=== PATIENT | male | born 1955 | race Caucasian/White ===

== ENCOUNTER 2023-11-11 16:02 | Outpatient (CLI) | payer OTHER, SELFPAY ==
[2023-11-11 16:41] LABS: Hematocrit 45.6 % (42.0-52.0); Hemoglobin 15.2 g/dL (14.0-18.0); Mean Corpuscular HGB Conc 33.3 g/dl (32-36); Mean Corpuscular Hemoglobin 31.1 pg (26-34); Mean Corpuscular Volume 93.3 fl (80-100); Mean Platelet Volume 10.8 fl (7.4-10.4); Platelet Count Result 173 k/mm3 (150-375); Red Blood Count 4.89 M/mm3 (4.6-6.20); Red Cell Distribution Width 12.4 % (11.5-14.5)
[2023-11-11 16:52] LABS: Alanine Aminotransferase 37 U/L (6-50); Albumin Level 4.6 g/dL (3.5-5.1); Alkaline Phosphatase 98 U/L (38-126); Anion Gap 6 mmol/L (4-12); Aspartate Amino Transferase 35 U/L (17-59); Bilirubin,Total 1.1 mg/dL (0.2-1.3); Blood Urea Nitrogen 15 mg/dL (9-20); Calcium 9.9 mg/dL (8.4-10.2); Carbon Dioxide 29 mmol/L (22-30); Chloride 104 mmol/L (98-107); Estimated Glomerular Filt Rate > 60; Glucose 129 mg/dL (65-110); Potassium 4.1 mmol/L (3.4-5.0); Sodium 139 mmol/L (137-145)
[2023-11-11 17:31] LABS: Vitamin D 25 Hydroxy 64.9 ng/mL
[2023-11-11 19:11] LABS: Microalbumin Urine Random 14.5 mg/L (0-16.7)
[2023-11-11 19:23] LABS: Creatinine Urine 81.2 mg/dL; MALB Creatinine Ratio 17.9 mg/g (0-30)
== END 2023-11-11 16:03 | disposition home or self-care (01) ==
PROVIDERS: PCP Family Medicine; Visit Provider Family Medicine
DX: E11.9 Type 2 diabetes mellitus without complications (principal); E66.9 Obesity, unspecified; Z00.00 Encounter for general adult medical examination without abnormal findings; Z76.89 Persons encountering health services in other specified circumstances
CPT/HCPCS: 36415; 80053; 82043; 82306; 83036; 85027

== ENCOUNTER 2024-05-24 08:29 | Outpatient (CLI) | payer OTHER, SELFPAY ==
[2024-05-24 09:15] LABS: Hematocrit 46.8 % (42.0-52.0); Hemoglobin 16.1 g/dL (14.0-18.0); Mean Corpuscular HGB Conc 34.4 g/dl (32-36); Mean Corpuscular Hemoglobin 31.9 pg (26-34); Mean Corpuscular Volume 92.7 fl (80-100); Mean Platelet Volume 10.5 fl (7.4-10.4); Platelet Count Result 186 k/mm3 (150-375); Red Blood Count 5.05 M/mm3 (4.6-6.20); Red Cell Distribution Width 12.6 % (11.5-14.5); White Blood Count 8.3 K/mm3 (4.5-10.0)
[2024-05-24 09:29] LABS: Alanine Aminotransferase 34 U/L (6-50); Albumin Level 4.6 g/dL (3.5-5.1); Alkaline Phosphatase 72 U/L (38-126); Anion Gap 8 mmol/L (4-12); Aspartate Amino Transferase 33 U/L (17-59); Bilirubin,Total 1.1 mg/dL (0.2-1.3); Blood Urea Nitrogen 20 mg/dL (9-20); Calcium 9.5 mg/dL (8.4-10.2); Carbon Dioxide 27 mmol/L (22-30); Chloride 105 mmol/L (98-107); Cholesterol 103 mg/dL (0-200); Estimated Glomerular Filt Rate > 60; Glucose 112 mg/dL (65-110); HDL Direct 46 mg/dL; Potassium 4.1 mmol/L (3.4-5.0); Sodium 140 mmol/L (137-145); Triglycerides 87 mg/dL (<150)
[2024-05-24 09:40] LABS: LDL Cholesterol Direct 36 mg/dL
[2024-05-24 09:59] LABS: Prostate Specific Antigen 2.3 ng/mL (< OR = 4.0)
[2024-05-24 11:40] LABS: Creatinine Urine 198.3 mg/dL
[2024-05-24 11:42] LABS: MALB Creatinine Ratio 5.4 mg/g (0-30); Microalbumin Urine Random 10.7 mg/L (0-16.7)
[2024-05-24 12:29] LABS: Hemoglobin A1C 6.1 % (<5.7)
== END 2024-05-24 08:30 | disposition home or self-care (01) ==
LOC: ANHLAB 08:39
PROVIDERS: PCP Family Medicine; Visit Provider Family Medicine
DX: Z12.5 Encounter for screening for malignant neoplasm of prostate (principal); E11.9 Type 2 diabetes mellitus without complications; E66.9 Obesity, unspecified; I48.91 Unspecified atrial fibrillation; Z00.00 Encounter for general adult medical examination without abnormal findings
CPT/HCPCS: 36415; 80053; 80061; 82043; 83036; 84153; 85027; G0103

== ENCOUNTER 2024-11-14 11:12 | Outpatient (CLI) | payer OTHER, SELFPAY ==
--- OUTSIDE RECORDS SUMMARY | 2024-11-14 12:02 | XMS_ITS | Data Portability ---
Author Organization [facility] Leann Sanchez [facility] Address [address] [place] [address] [place] [id number] Assessment Encounter Date Assessment Date Assessment LastModified by Organization Details LastModified Time 02/22/2024 02/22/2024 patient leaves ambulatory in stable condition alone to pharmacy performed some of all of the following activities: 1. Preparing to see the patient and reviewing previous procedures performed, pathology, lab and/or imaging. 2. Obtaining and reviewing the history, and performing a physical exam. 3. Counseling and educating the patient/family /caregiver. 4. Ordering appropriate medications, tests, and/or procedures. 5. Documenting in the EMR Not available 02/27/2024 14:11:30 Plan of Treatment Reminders Order Date Submit Date Provider Last Modified By Organization Details Last Modified Time Details Appointments Follow Up 15 2025 09:00A M Julianne Tineo MD Not available Not available Not available Lab None recorded. Referral None recorded. Procedures None recorded. Surgeries None recorded. Imaging None recorded. Medication Orders betametha sone acetate and sodium phos 6 mg/mL suspensio n for injection 2023 024 Not available 02/28/2024 14:42:45 dexametha sone sodium phosphate 4 mg/mL injection solution 2023 024 [email or web address] Not available 02/28/2024 14:42:43 baclofen 5 mg tablet 2023 [facility], [address] [place], [address], 02/22/2024 10:14:40 Mounjaro 2.5 mg/0.5 mL subcutane ous pen injector [address] [place] [address] Pharmacy 119, [address] [facility], [place], [address], 02/22/2024 09:54:09 Patient TargetsNo targets recorded. Patient Instructions Encounter Date Encounter Id Patient Instructions Last Modified By Organization Details Last Modified Time 02/22/2024 [id number] back pain: care instructions [email or web address] Not available 02/22/2024 10:12:05 03/21/2024 [id number] spirometry, portable* snaoman Not available 03/21/2024 16:00:33 This is a 68-year-old male referred for TARYN PMH of Diabetes and A fib I discussed with the patient the current status of their pulmonary disease. Discussed need for compliance with current medications. 1) TARYN: - night time choking, STOP BANG is 5/8, mallampati 2 ,ESS 8 . The patient was counseled regarding the increased morbidity and mortality associated with moderate to severe obstructive sleep apnea, as well as an increased risk for hypertension, heart attack and stroke. - Schedule PSG . - Excessive daytime sleepiness secondary to TARYN. 2) Dyspnea: could be secondary to TARYN . 3) As you know, we have recommended that you follow good sleep habits. As we have discussed, the principles of good sleep hygiene including 1) Fixing a bedtime (means lights out) and risetime 2) The bedroom should be cool, dark and quiet - and reserved for sleeping and intimate activities. 2a) If possible children should have their own bedroom. In any case we STRONGLY DISCOURAGE children sleeping in the same bed as you. 3) No caffeine intake after 2 PM 4) Television, computers and other electronic devices out of the bedroom - avoid activities that engage your attention when should be sleeping 5) Avoid heavy exercise during the 1 - 2 hours prior to bedtime (lights out time). 6) About 20 - 30 minutes prior to bedtime: stop regular activities like Television and computers. Do some downer activity that signals your body that it is time to go to sleep. This may include: 6a) Bath or shower 6b) light snack - no caffeine 6c) reading 6d) listen to music 6e) relaxation exercises - see our book or our disc or go to our website (below). 7) If you cannot fall asleep within 20 - 30 minutes, OR you wake up in the middle of the night and cannot fall asleep within 20 - 30 minutes: repeat the downer activity. although not a current smoker, inquired about patient smoking status and discussed risks of tobacco use. Patient verbally acknowledged the understanding of all the risks, benefits, and care plans. Call or Return if symptoms worsen or persist. snaoman Not available 03/21/2024 14:09:17 07/26/2024 [id number] 6 minute walk test* snaoman Not available 07/26/2024 11:27:05 This is a 69-year-old male referred for TARYN PMH of Diabetes and A fib, s/p pacemaker I discussed with the patient the current status of their pulmonary disease. Discussed need for compliance with current medications. 1) Severe TARYN: - Apnea hypopnea for the whole night was 43.4/hr patient state good compliance with CPAP . It helps , patient feels less tired and fatigued. Reviewed CPAP download done /compliance record and discussed it with the patient ( - ): usage > 4hrs 97 %, AHI2.3/hr, CPAP 5- 8 cm H2O Denies any daytime drowsiness or fatigue. 2) Dyspnea: could be secondary to TARYN . 3) As you know, we have recommended that you follow good sleep habits. As we have discussed, the principles of good sleep hygiene including 1) Fixing a bedtime (means lights out) and risetime 2) The bedroom should be cool, dark and quiet - and reserved for sleeping and intimate activities. 2a) If possible children should have their own bedroom. In any case we STRONGLY DISCOURAGE children sleeping in the same bed as you. 3) No caffeine intake after 2 PM 4) Television, computers and other electronic devices out of the bedroom - avoid activities that engage your attention when should be sleeping 5) Avoid heavy exercise during the 1 - 2 hours prior to bedtime (lights out time). 6) About 20 - 30 minutes prior to bedtime: stop regular activities like Television and computers. Do some downer activity that signals your body that it is time to go to sleep. This may include: 6a) Bath or shower 6b) light snack - no caffeine 6c) reading 6d) listen to music 6e) relaxation exercises - see our book or our disc or go to our website (below). 7) If you cannot fall asleep within 20 - 30 minutes, OR you wake up in the middle of the night and cannot fall asleep within 20 - 30 minutes: repeat the downer activity. although not a current smoker, inquired about patient smoking status and discussed risks of tobacco use. Patient verbally acknowledged the understanding of all the risks, benefits, and care plans. Call or Return if symptoms worsen or persist. snaoman Not available 07/26/2024 10:48:09 Reason for Referral None Reported. Results Created Date Observation Date Name Description Value Unit Range Abnormal Flag Note LastModifiedBy Organization Detail LastModifiedTime 03/21/2003/21/2024 nancy metry , daniele ble* FVC 87 Not Available [facility] [place] [address], [address], 03/21/2024 13:57:54 03/21/20 24 03/21/2024 nancy metry , daniele ble* FEV1 98 Not Available [facility] [place] [address], [address], 03/21/2024 13:57:54 03/21/20 24 03/21/2024 nancy metry , daniele ble* FEV1/FVC 113 Not Available [facility] [place] [address], [address], 03/21/2024 13:57:54 07/26/19 25 07/26/2024 6 minut e walk test* Unknown Analyte 93 Not Available [facility] [place] [address], [address], 07/26/2024 10:38:11 07/26/19 25 07/26/2024 6 minut e walk test* Unknown Analyte 85 Not Available [facility] [place] [address], [address], 07/26/2024 10:38:11 07/26/19 25 07/26/2024 6 minut e walk test* Unknown Analyte 93 Not Available [facility] [address] [place], [address], 07/26/2024 10:38:11 07/26/19 25 07/26/2024 6 minut e walk test* Unknown Analyte 86 Not Available [facility] [address] [place], [address], 07/26/2024 10:38:11 07/26/19 25 07/26/2024 6 minut e walk test* Unknown Analyte 93 Not Available [facility] [address] [place], [address], 07/26/2024 10:38:11 07/26/19 25 07/26/2024 6 minut e walk test* Unknown Analyte 87 Not Available [facility] [address] [place], [address], 07/26/2024 10:38:11 07/26/19 25 07/26/2024 6 minut e walk test* Unknown Analyte 93 Not Available [facility] [address] [place], [address], 07/26/2024 10:38:11 07/26/19 25 07/26/2024 6 minut e walk test* Unknown Analyte 91 Not Available [facility] [address] [place], [address], 07/26/2024 10:38:11 07/26/19 25 07/26/2024 6 minut e walk test* Unknown Analyte 92 Not Available [facility] [address] [place], [address], 07/26/2024 10:38:11 07/26/19 25 07/26/2024 6 minut e walk test* Unknown Analyte 89 Not Available [facility] [address] [place], [address], 07/26/2024 10:38:11 07/26/19 25 07/26/2024 6 minut e walk test* Unknown Analyte 91 Not Available [facility] [address] [place] [address] [place], [address], 07/26/2024 10:38:11 07/26/19 25 07/26/2024 6 minut e walk test* Unknown Analyte 99 Not Available [facility] [address] [place], [address], 07/26/2024 10:38:11 02/25/20 24 02/25/2024 XR, lumba r spine [facility] [address] [place] [address] Radiol ogy Report Lalitha t: CLINT BERG gino: [id number] Date of Servic e: [id number] MR #: [id number] /AG E/SEX: 1954 / 68 / M Room/B ed: Locati on: [place] [facility] Access ion: [id number] Exam: Lumbar Spine Comple te Reason : LOW BACK PAIN M54.50 Orderi ng Provid er: Edinson Melo APN Attend ing Provid er: Edinson Melo APN CC: Kwadwo MERINO,And rew; Edinson Melo; No Family Physic abner Report Number :[id number] Lumbar Spine Comple te: 024 10:11 AM Histor y: LOW BACK PAIN M54.50 FINDIN GS: 5 views lumbar spine obtain ed. Lumbar alignm ent within normal limits . Verteb ral body height s mainta ined. Modera te hypert rophic facet arthri tis at L4-L5. Interv ertebr al disc spaces mainta ined. No acute fractu re or suspic ious bone lesion . IMPRES SUHAS: Facet arthri tis at L4-L5. Otherw ise no acute lumbar spine findin g. All radiol ogy exams are perfor med follow ing ALARA, all CT images are acquir ed using automa gino exposu re contro l. End of Report Dictat ed by: Kwadwo MERINO,And rew 1339 Transc riptio nist: GARRETT RANDLE 1339 Signed by: Kwadwo MERINO,And rew 1340 [email or web address] [facility] ([facility]) [address] [facility], [place], [address], 02/26/2024 12:44:52 04/08/20 24 04/04/2024 sleep study split /BIPA P/CPA P [facility] [address] [facility] [address] [place] [address] Sleep Study Report Lalitha henderson: CLINT BERG JESÚS Escobedo gino: [id number] MR #: [id number] /AG E/SEX: 1954 / 68 / M Room/B ed: Locati on: [place] [facility] Exam: Sleep Study Split/ BIPAP/ CPAP Reason : OSAS Orderi ng Provid er: CHASIDY TINEO MD Attend ing Provid er: CHASIDY TINEO MD CC: Claudette Garcia rd, APRN; CHASIDY TINEO MD; No Family Physic abner,00 ; SLEEP Report Number : [id number] SPLIT NIGHT POLYSO MNOGRA PHY REPORT Clint Berg tested at 08:55: 18 PM on 024, is a 68 year Male, date of 956 who is 5' 8 and 200.0 lbs, with a BMI of 30.7. This lalitha henderson has an Epwort h Sleepi ness Score ESS=5. Neck circum ferenc e is 15.5 inches . Lalitha henderson did not take any medica tion that makes him sleepy prior to Study. Lalitha henderson states that he has Diabet es. Low diagno stic oxygen level of 85% Lalitha henderson met criter ia for a Split Study and was fitted with a Size Medium DreamW ear Under the Nose Nasal Mask. Beginn ing cpap pressu re of 5 cmH20. Modera te snores . EKG=NS R. Leg moveme nts with arousa ls. Ending Cpap pressu re of 7 cmH20. No unusua l sleep behavi or was observ ed. Oxygen was not used for this test. Lalitha henderson woke up and wanted to go home. METHOD This polyso mnogra m was perfor med using SleepW orks system . A total of 19 channe ls were record ed. Four EEG channe ls were record ed using disc electr odes placed accord ing to the standa rd 10/20 electr ode placem ent system to assess sleep stages . (Right C3-A2, C4-AI, OI-A2, 02-AI) . Airflo w was measur ed using the Braebo n Sleepm ate Thermo couple Nasal/ Oral Cannul a. Sleepm ate pressu re Cannul a was used to monito r air pressu re. Thorac ic and abdomi nal effort s were measur ed using the Ripmat e Induct sam Belt. The Braebo n Snorin g Sensor was placed on the site to assess snorin g. The Axial EMG activi ty was record ed from the mental is muscle . Leg moveme nts were record ed using the standa rd disc electr odes placed over the tibial is on both legs. The oxygen satura tion was record ed using a finger probe connec gino to the Nonin Pulse Oximet er. The ECG was used for Cardia c Monito ring. RESULT S REPORT Diagno [facility] Sleep Study Summar y Sleep Data: This lalitha t displa yed normal latenc y to sleep onset of 68.6 minute s, with normal sleep jordyn ecture with sleep stage percen tages of 6.6% N1, 61.5% N2, 23.0% N3, and 8.9% REM, with reduce d sleep effici ency of 49.4% and with Total Sleep Time of 128.5 minute s. Respir atory Data: 93 respir atory events were observ ed which includ ed 91 hypopn eas. The apnea hypopn ea index during REM is 41.7 and 43.6 during NREM. The apnea hypopn ea for the whole night was 43.4 which is elevat ed. The amount s of apneas /hypop neas are not evenly distri buted, with a non-RE M RDI of 43.6 and a REM RDI of 41.7. Respir atory events were more freque nt in the supine positi on. The longes t respir atory event durati on was 52.0 sec. Minimu m NREM oxygen satura tion was 86.0%; minimu m REM oxygen satura tion was 85.0%. Time spent below Sa02 of 88% was 1.7 min. Snorin g was noted to be modera te. Note: All respir atory events were scored using the AASM 1B criter ia (Hypop neas with a desatu ration >=%) Limb Moveme nt: 67 limb moveme nts were observ ed for an index of 31.3. Arousa l: 18 arousa ls were observ ed, with a total index of 8.4. There were 11 sponta neous arousa ls, 4 respir atory arousa ls (respi ratory arousa l index of 1.9), and 2 limb moveme nt arousa ls (limb moveme nt arousa l index of 0.9). Cardia c: The mean heart rate was 81.5 bpm. There were no arrhyt hmias noted. Titrat ion Sleep Study Summar y Sleep Data: This patien t displa yed normal latenc y to sleep onset of 22.5 minute s, with normal sleep jordyn ecture with sleep stage percen tages of 2.6% N1, 59.4% N2, 21.3% N3, and 16.8% REM, with reduce d sleep effici ency of 69.0% and with Total Sleep Time of 155.0 minute s. Titrat ion Data: Nasal CPAP was introd uced and titrat ed from 5 cm to 7 cm. Snorin g was elimin ated at 7 cm of pressu re. [place] l pressu re appear s to be - in terms of improv ing the patien t's qualit y of sleep, snorin g and apnea. Limb Moveme nt: 23 limb moveme nts were observ ed for an index of 8.9. Arousa l: 8 arousa ls were observ ed, with a total index of 3.1. There were 1 sponta neous arousa ls and 6 limb moveme nt arousa ls (limb moveme nt arousa l index of 2.3). Cardia c: The mean heart rate was 85.0 bpm. There were no arrhyt hmias noted. Impres suhas: 1. - Severe obstru ctive sleep apnea APAP 5-8 cm H2O Mask Type and size Medium DreamW ear Under the Nose Nasal Mask Mask Size Medium AHI on lowest level 56 AHI on optimu m level Note: US CMMS provid es covera ge for Rx of adults with TARYN, when AHI >15; OR for AHI 5 i?? 15 when accomp anied by: excess sam daytim e sleepi ness, impair ed cognit ion, mood disord ers, insomn ia, hypert ension , ischem ic heart diseas e, or histor y of stroke Recomm endati ons: 1. This study is consis tent with Severe obstru ctive sleep apnea. The patien t met split night criter ia. 2. Treatm ent with APAP at 5-8 cm H20 with heated humidi ficati on, A-Flex at 2, with a Medium DreamW ear Under the Nose Nasal Mask. 3. The patien t should be counse led regard ing the increa sed morbid ity and mortal ity associ ated with modera te to severe obstru ctive sleep apnea, as well as an increa sed risk for hypert ension , heart attack and stroke . 4. The patien t should be counse led not to drive or operat e heavy stephanie alban when drowsy . 5. Sugges t the patien t be referr ed and seen in Sleep Clinic within 30 days of [facility] ent set up to downlo ad APAP data and addres s issues with compli ance, mask fit and sympto m relief . End of Report Dictat ed by: Rivka MERINO, Julianne 08 Transc riptio nist: JULIANNE TINEO [id number] [email or web address] [facility] ([facility]) [address] [place], [address], 04/10/2024 08:21:54 Result Notes None recorded. Problems Name Problem SNOMED Code Status Onset Date Resolution Date Notes Provider Name and Address Organization Details Recorded Time Syncope and collapse 552872299 Active 2012 Location : None Sev erity: Moderate Progres s: Stable A dded By: KIKO MATHEW dd to Current Problems : NO Not Available [facility] 8 03:05:27 Musculos keletal symptom 09658753 Completed 201101/22/2012 Location : None Sev erity: Moderate Progres s: Stable A dded By: Donnell Arroyo Add to Current Problems : NO Not Available [facility] 8 03:05:27 Cough 78453424 Completed 201201/29/2013 Location : None Sev erity: Moderate Progres s: Stable A dded By: KIKO MATHEW dd to Current Problems : NO Not Available [facility] 8 03:05:27 Malaise and fatigue 441648057 Active 2011 Location : None Sev erity: Moderate Progres s: Stable A dded By: Nella Bauer d to Current Problems : NO Not Available [facility] 8 03:05:27 Fibromyo sitis 37330491 Completed 201109/07/2011 Location : None Sev erity: Moderate Progres s: Stable A dded By: Nella Bauer to Current Problems : NO Not Available [facility] 8 03:05:27 Cellulit is of lower limb 877060381 Completed 201001/28/2011 Location : None Sev erity: Moderate Progres s: Stable A dded By: Nella Bauer to Current Problems : NO Not Available [facility] 8 03:05:27 Headache 59685738 Completed 201201/05/2013 Location : None Sev erity: Moderate Progres s: Stable A dded By: Donnell Arroyo Add to Current Problems : NO Not Available [facility] 8 03:05:27 Benign essentia l hyperten suhas 7521312 Active 2011 Location : None Sev erity: Moderate Progres s: Stable A dded By: KIKO MATHEW dd to Current Problems : NO Not Available [facility] 8 03:05:27 Pain of hip region 01992071 Completed 201109/07/2011 Location : None Sev erity: Moderate Progres s: Stable A dded By: Nella Bauer d to Current Problems : NO Not Available [facility] 8 03:05:27 Shoulder joint pain 371438928 Completed 201201/05/2013 Location : None Sev erity: Moderate Progres s: Stable A dded By: KIKO MATHEW dd to Current Problems : NO Not Available [facility] 8 03:05:27 Dizzines s and giddines s 173592148 Active 2012 Location : None Sev erity: Moderate Progres s: Stable A dded By: Donnell Arroyo Add to Current Problems : NO Not Available [facility] 8 03:05:28 Acute sinusiti s 45151305 Completed 201310/16/2013 Location : None Sev erity: Moderate Progres s: Stable A dded By: Donnell Arroyo Add to Current Problems : NO Not Available [facility] 8 03:05:28 Allergic rhinitis 00306457 Completed 201201/29/2013 Location : None Sev erity: Moderate Progres s: Stable A dded By: KIKO MATHEW dd to Current Problems : NO Not Available [facility] 8 03:05:28 Shoulder joint pain 655384001 Active 2011 Not Available [facility] 8 04:59:20 Disorder of lower limb 745363675 Completed 201001/28/2011 Location : None Sev erity: Moderate Progres s: Stable A dded By: Nella Bauer to Current Problems : NO Not Available [facility] 8 03:47:22 Benign prostati c hyperpla humberto 269547781 Active 2021 Kylie Tompkins, RESIDENT SURGEON [address] [place], [address] , [facility] 2 09:42:50 Hyperlip idemia 05036079 Active 2021 Jojo harris, [facility] 2 16:46:09 Prediabe talat 006538271 Active 2021 Jojo Littlejohn null, [facility] 2 16:47:14 Benign paroxysm al position al vertigo 953061948 Active 2021 Kylie Tompkins, RESIDENT SURGEON [address] [place], [address] , [facility] 2 11:14:25 Type 2 diabetes mellitus 31545616 Active 2022 Kylie Tompkins, RESIDENT SURGEON [address] [place], [address] , [facility] 3 09:19:08 Pain of left wrist 18267803040 9102 Active 2022 Kylie Tompkins, RESIDENT SURGEON [address] [place], [address] , [facility] 3 10:23:32 Osteomye litis 10295080 Active 2010 Relation : Self;Not e: Remote: right femur Not Available [facility] 7 08:31:57 Atrial fibrilla tion 57953747 Active 2012 Relation : Self Not Available [facility] 7 08:31:57 Gastroes ophageal reflux disease 164094184 Active 2010 Relation : Self Not Available [facility] 7 08:31:58 Prostate specific antigen above referenc e range 310500800 Active 2011 Relation : Self Not Available [facility] 7 08:31:58 Disorder of rotator cuff 865883098 Active 2011 Relation : Self Not Available [facility] 7 08:35:42 Full thicknes s rotator cuff tear 532198032 Active 2011 Relation : Self Not Available [facility] 7 08:35:42 Disorder of shoulder 347310788 Active 2014 Relation : Self Not Available [facility] 7 08:35:43 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 Procedures Surgical History Date Name Laterality Status Provider Name and Address Organization Details Recorded Time 2 Suture/Staple removal completed Kate Cuenca [facility] 06/01/2022 11:26:02 0 Removal of foreign body - Eye completed Celia Costa APRN [address] [place] [address], [address], [facility] 09/02/2019 17:56:00 Pacemaker/Defib rillator completed [facility] 09/02/2019 14:52:15 Colonoscopy completed [facility] 09/02/2019 14:57:23 Imaging Results Imaging Date Name Status LastModified by Organiz ation Details LastModified Time 02/25/2024 XR, lumbar spine completed [email or web address] ([facility]) [address] [place] [address], [address], 02/26/2024 12:44:52 04/04/2024 sleep study split/BIPAP/ CPAP completed [id number] [facility] ([facility]) [address] [place] [address], [address], 04/10/2024 08:21:54 Procedure Notes None recorded. Medical Equipment None Reported. Allergies Allergen ID Allergen Name Allergen Category Reaction Reaction Severity Criticality Documentation Date Start Date Code Code System Note Provider Name and Address Organization Details Recorded Time 128100 acetamino phen / hydrocodo ne medicatio n Not available Not available Not available 02/27/20172014 00153 2 RxNorm Comme nt: User: danelle t; Not Available [facility] 7 08:14:02 38420 Bactrim medicatio n rash Not available Not available 09/16/20162014 43129 9 RxNorm Not Available [facility] 7 15:41:28 05713 No known allergy (situatio n) Not available Not available Not available Not available 09/16/2016 71357 6003 SNOMED Not Available [facility] 7 11:16:22 Medications Name Sig Start Date Stop Date Status Note LastModified by Organization Details LastModified Time cyclobenz aprine 10 mg tablet TAKE 1 TABLET BY MOUTH THREE TIMES DAILY NEEDED 06/10 completed Not Available Not Available Not Available amoxicill in 500 mg capsule TAKE 1 CAPSULE BY MOUTH TWICE DAILY DIRECTED FOR 10 DAYS 12/02 completed Not Available Not Available Not Available metformin 500 mg tablet Take 1 tablet by mouth twice daily 07/13 completed Not Available Not Available Not Available promethaz ine-DM 6.25 mg-15 mg/5 mL oral syrup TAKE 5 ML BY MOUTH EVERY 4 HOURS 12/02 completed Not Available Not Available Not Available atorvasta tin 20 mg tablet TAKE ONE TABLET BY MOUTH EVERY DAY active Not Available Not Available No t Available metoprolo l succinate ER 50 mg tablet,ex tended release 24 hr TAKE ONE TABLET BY MOUTH EVERY DAY active Not Available Not Available No t Available Vicodin 5 mg-500 mg tablet take one or both one hour prior to procedur e 09/23 completed Vicodin 5-500 mg oral tablet;R ecorded Status: Recorded on: 04/19/20 12 11:47AM; Disconti nued Status: Disconti nued on: 09/24/19 16 1:18PM;U ser: [email or web address];E st. Completi on: 04/20/20 12;Print ed: 04/19/20 12;Presc ription Date: 04/24/20 12 03:57:54 ;Clinica l Medicati on Id: [id number];U nique Medicati on Id: [id number];D iscontin uedUser: [email or web address];Pr escribed : Practice Prescrib ed Medicati on Not Available Not Available Not Available Tikosyn 250 mcg capsule take 1 capsule (250 mcg) by oral route 2 times per day 05/26 completed Tikosyn 250 mcg oral capsule; Recorded Status: Recorded on: 09/24/19 16 2:11PM;U ser: [email or web address] on;Indic ation: Preventi on of Recurren t Atrial Fibrilla tion - ([phone]);Clin ical Medicati on Id: [id number];U nique Medicati on Id: [id number];P rescribe d: Outside [facility] ed Medicati on Not Available Not Available Not Available acetamino phen 300 mg-codein e 30 mg tablet TAKE 1 TABLET BY MOUTH EVERY 6 HOURS NEEDED 06/10 completed Not Available Not Available Not Available aspirin 81 mg tablet,de layed release take 1 tablet (81 mg) by oral route once daily 09/02 completed aspirin 81 mg oral tablet,d elayed release (/EC); Recorded Status: Recorded on: 09/24/19 16 2:11PM;U ser: [email or web address] on;Clini socrates Medicati on Id: [id number];U nique Medicati on Id: [id number];P rescribe d: Outside [facility] ed Medicati on Not Available Not Available Not Available ketorolac 10 mg tablet TAKE ONE TABLET BY MOUTH THREE TIMES DAILY NEEDED FOR PAIN active Not Available Not Available No t Available betametha sone acetate and sodium phos 6 mg/mL suspensio n for injection Take 1 mL by injectio n route. 02/27 completed Not Available Not Available Not Available prednisol one acetate 1 % eye drops,james pension INSTILL 1 DROP INTO OPERATIV E EYE 4 TIMES A DAY. START THE DAY BEFORE SURGERY 05/26 completed Not Available Not Available Not Available ciproflox acin 0.3 % eye drops INSTILL 1 DROP INTO AFFECTED EYE(S) BY OPHTHALM IC ROUTE EVERY 2 HOURSWHI LE AWAKE FOR 2 DAYS THEN 1 DROP EVERY 4 HRS WHILE AWAKE FOR 5 DAYS 10/05 completed Not Available Not Available Not Available meclizine 25 mg tablet Take 1 tablet 3 times a day by oral route for 14 days. 12/09 completed Not Available Not Available Not Available hydrocodo ne 7.5 mg-acetam inophen 325 mg tablet Take 1 tablet every 6 hours by oral route. 10/04 completed Not Available Not Available Not Available Cipro 500 mg tablet take 1 tablet (500 mg) by oral route 2 times per day for 5 days to start the day before procedur e 09/23 completed Cipro 500 mg oral tablet;R ecorded Status: Recorded on: 04/19/20 12 11:47AM; Disconti nued Status: Disconti nued on: 09/24/19 16 1:18PM;U ser: [email or web address];E st. Completi on: 04/24/20 12;Print ed: 04/19/20;Presc ription Date: 04/24/20 03:57:54 ;Clinica l Medicati on Id: [id number];U nique Medicati on Id: [id number];D iscontin uedUser: [email or web address];Pr escribed : Practice Prescrib ed Medicati on Not Available Not Available Not Available lisinopri l 10 mg tablet take 1 tablet (10 mg) by oral route once daily 10/05 completed lisinopr il 10 mg oral tablet;R ecorded Status: Recorded on: 07/27/19 15 9:42AM;U ser: [email or web address] Not Available Not Available Not Available flecainid e 100 mg tablet take 1 tablet (100 mg) by oral route every 12 hours 07/27 completed flecaini de 100 mg oral tablet;R ecorded Status: Recorded on: 07/27/19 15 9:42AM;D iscontin ued Status: Disconti nued on: 07/27/19 15 2:57PM;U ser: [email or web address] Not Available Not Available Not Available aspirin 81 mg chewable tablet chew 1 tablet (81 mg) by oral route once daily 2014 active aspirin 81 mg oral tablet,abdirahman vicente; Recorded Status: Recorded on: 07/27/19 15 9:42AM;U ser: [email or web address] Not Available Not Available Not Available diclofena c sodium 75 mg tablet,de layed release Take 1 tablet twice a day by oral route. 11/15/ 2023 active Not Available Not Available Not Avai lable furosemid e 20 mg tablet Take 1 tablet every day by oral route for 14 days. 04/16 completed Not Available Not Available Not Available dexametha sone sodium phosphate 4 mg/mL injection solution Inject 1 mL twice a day by intramus cular route. 02/27 completed Not Available Not Available Not Available methylpre dnisolone 4 mg tablets in a dose pack TAKE BY MOUTH DIRECTED ON INSIDE OF PACKAGE 12/02 completed Not Available Not Available Not Available colchicin e 0.6 mg tablet TAKE 1/2 TABLET BY MOUTH TWICE DAILY FOR 5 DAYS active Not Available Not Available No t Available fluticaso ne propionat e 50 mcg/actua tion nasal spray,james pension [place] 1 spray every day by intranas al route. 05/26 completed Not Available Not Available Not Available dofetilid e 500 mcg capsule TAKE 1 CAPSULE BY MOUTH TWICE DAILY 12/02 completed Not Available Not Available Not Available naproxen 500 mg tablet TAKE 1 TABLET BY MOUTH TWICE DAILY 04/16 completed Not Available Not Available Not Available Microlet Lancet USE DIRECTED TO CHECK BLOOD GLUCOSE DAILY (E11.22) 2023 active Not Available Not Available Not Avai lable Fish Oil 500 mg capsule take 1 capsule by oral route daily 2015 active Fish Oil 500 mg oral capsule; Recorded Status: Recorded on: 09/24/19 16 2:11PM;U ser: [email or web address] on;Clini socrates Medicati on Id: [id number];U nique Medicati on Id: [id number];P rescribe d: Outside Prescrib ed Medicati on Not Available Not Available Not Available dutasteri de 0.5 mg capsule TAKE 1 CAPSULE BY MOUTH ONCE DAILY active Not Available Not Available No t Available metoprolo l tartrate 25 mg tablet take 1 tablet (25 mg) by oral route 2 times per day 10/05 completed metoprol ol tartrate 25 mg oral tablet;R ecorded Status: Recorded on: 09/24/19 16 2:11PM;U ser: [email or web address] on;Indic ation: Hyperten suhas - ();Clin ical Medicati on Id: [id number];U nique Medicati on Id: [id number];P rescribe d: Outside Prescrib ed Medicati on Not Available Not Available Not Available Vitamin C daily active Not Available Not Mery ilable Not Available aspirin 09/23 completed Aspirin; Recorded Status: Recorded on: 01/22/20 11 3:19PM;D iscontin ued Status: Disconti nued on: 09/24/19 16 2:11PM;U ser: [email or web address]; Indicati on: - (-5);Pre scriptio n Date: 01/22/20 11 22:11:11 ;Clinica l Medicati on Id: [id number];Un ique Medicati on Id: -5;Disco ntinuedU ser: [email or web address] on;Presc ribed: Outside Prescrib ed Medicati on Not Available Not Available Not Available Fish Oil 09/23 completed Fish oil;Stephen rded Status: Recorded on: 01/22/20 11 3:19PM;D iscontin ued Status: Disconti nued on: 09/24/19 16 2:11PM;U ser: [email or web address]; Indicati on: - (-5);Pre scriptio n Date: 01/22/20 11 22:11:11 ;Clinica l Medicati on Id: [id number];Un ique Medicati on Id: -5;Disco ntinuedU ser: swilkers on;Presc ribed: Outside Prescrib ed Medicati on Not Available Not Available Not Available metoprolo l succinate once daily 06/10 completed Not Available Not Available Not Available Tikosyn BID 04/16 completed Tikosyn oral;Rec orded Status: Recorded on: 09/04/19 15 1:24PM;U ser: [email or web address];C linical Medicati on Id: [id number];U nique Medicati on Id: [id number];Pr escribed : Outside Prescrib ed Medicati on Not Available Not Available Not Available levocetir izine 5 mg tablet TAKE 1 TABLET BY MOUTH ONCE DAILY 06/10 completed Not Available Not Available Not Available tadalafil 2.5 mg tablet Take 1 tablet every day by oral route. 10/06 /2022 completed Not Available Not Available Not Available Pradaxa 150 mg capsule take 1 capsule (150 mg) by oral route 2 times per day 07/27 completed Pradaxa 150 mg oral capsule; Recorded Status: Recorded on: 07/27/19 15 9:42AM;D iscontin ued Status: Disconti nued on: 07/27/19 15 2:57PM;U ser: [email or web address] Not Available Not Available Not Available Contour Next Test Strips USE 1 STRIP TO CHECK GLUCOSE ONCE DAILY DIRECTED active Not Available Not Available No t Available Contour Next EZ Meter USE DIRECTED active Not Available Not Available No t Available Eliquis 5 mg tablet TAKE 1 TABLET BY MOUTH TWICE DAILY active Not Available Not Available No t Available Eliquis 09/02 completed Eliquis oral;Rec orded Status: Recorded on: 09/04/19 15 1:24PM;U ser: [email or web address];C linical Medicati on Id: [id number];U nique Medicati on Id: [id number];P leida d: Outside Prescrib ed Medicati on Not Available Not Available Not Available baclofen 5 mg tablet TAKE 1 TABLET BY MOUTH THREE TIMES DAILY NEEDED FOR BACK PAIN active Not Available Not Available No t Available Mounjaro 7.5 mg/0.5 mL subcutane ous pen injector Inject 7.5 mg every week by subcutan eous route. 10/04 completed Not Available Not Available Not Available Mounjaro 5 mg/0.5 mL subcutane ous pen injector INJECT 5 MG SUBCUTAN EOUSLY ONCE WEEKLY 02/21 completed Not Available Not Available Not Available Mounjaro 10 mg/0.5 mL subcutane ous pen injector INJECT 1 SYRINGE SUBCUTAN EOUSLY ONCE A WEEK active Not Available Not Available No t Available Mounjaro 12.5 mg/0.5 mL subcutane ous pen injector INJECT 12.5 MG (0.5 ML) SUBCUTAN EOUSLY ONCE WEEKLY active Not Available Not Available No t Available Mounjaro 2.5 mg/0.5 mL subcutane ous pen injector Inject 0.5 mL every week by subcutan eous route. 02/21 completed Not Available Not Available Not Available Dexcom G7 Sensor device USE DIRECTED 02/21 completed Not Available Not Available Not Available Vitals Date Recorded Body height Heart rate Respiratory rate Body temperature Body mass index (BMI) Body weight Oxygen saturation Oxygen saturation in Arterial blood by Pulse oximetry Pain severity - 0-10 verbal numeric rating [Score] - Reported Systolic blood pressure Diastolic blood pressure Provider Name and Address Organization Details Last Updated DateTime 4 172.72 cm 78 /min 20 /min 98.4 [degF] 33.3 kg/m2 60804.7 3 g 96 % 96 % 7 134 mm[Hg] 80 mm[Hg] Halima Lozada [facility] 4 09:14:04 Date Recorded Body height Body mass index (BMI) Body weight Body temperature Respiratory rate Heart rate Oxygen saturation Oxygen saturation in Arterial blood by Pulse oximetry Systolic blood pressure Diastolic blood pressure Provider Name and Address Organization Details Last Updated DateTime 4 172.72 cm 31.9 kg/m2 52436.6 1 g 98 [degF] 20 /min 82 /min 97 % 97 % 140 mm[Hg] 85 mm[Hg] Karla Keysluis [facility] 4 09:56:55 Date Recorded Body height Heart rate Respiratory rate Body temperature Body mass index (BMI) Body weight Oxygen saturation Oxygen saturation in Arterial blood by Pulse oximetry Systolic blood pressure Diastolic blood pressure Provider Name and Address Organization Details Last Updated DateTime 4 172.72 cm 76 /min 20 /min 98 [degF] 31.7 kg/m2 20884.9 3 g 97 % 97 % 122 mm[Hg] 84 mm[Hg] Haylee Saldivar [facility] 4 14:47:53 Date Recorded Body height Heart rate Respiratory rate Body mass index (BMI) Body weight Oxygen saturation Oxygen saturation in Arterial blood by Pulse oximetry Provider Name and Address Organization Details Last Updated DateTime 4 172.72 cm 84 /min 20 /min 30.4 kg/m2 43531.4 7 g 97 % 97 % Alley Girard [facility] 4 14:05:15 Date Recorded Body height Heart rate Respiratory rate Body mass index (BMI) Body weight Oxygen saturation Oxygen saturation in Arterial blood by Pulse oximetry Provider Name and Address Organization Details Last Updated DateTime 5 172.72 cm 85 /min 20 /min 31.5 kg/m2 81340.6 2 g 93 % 93 % Emy Man [facility] 5 10:36:16 Social History Question Answer Notes LastModified by Organizat ion Details LastModified Time Tobacco Smoking Status Never Smoker Krystal Cohen [email or web address] [facility] 09/02/2019 14:57:38 What Is Your Level Of Alcohol Consumption? Occasional [email or web address] Information not available 06/10/2021 What Is Your Level Of Caffeine Consumption? None [email or web address] Information not available 06/10/2021 In The 14 Days Before Symptom Onset, Have You Had Close Contact With A Laboratory-confir med COVID-19 While That Case Was Ill? No Information not available 12/09/2022 In The 14 Days Before Symptom Onset, Have You Had Close Contact With A Person Who Is Under Investigation For COVID-19 While That Person Was Ill? No Information not available 12/09/2022 Have You Been To An Area Known To Be High Risk For COVID-19? No Information not available 12/09/2022 Do You Or Have You Ever Used E-cigarettes Or Vape? Never Used Electronic Cigarettes [email or web address] Information not available 09/02/2019 How Often Do You Need To Have Someone Help You When You Read Instructions, Pamphlets, Or Other Written Material From Your Doctor Or Pharmacy? 1-Never [email or web address] Information not available 09/02/2019 What Was The Date Of Your Most Recent Tobacco Screening? 07/26/2024 [email or web address] Information not available 07/26/2024 Do You Or Have You Ever Used Smokeless Tobacco? Never Used Smokeless Tobacco [email or web address] Information not available 09/02/2019 Do You Use Any Illicit Or Recreational Drugs? No [email or web address] Information not available 06/10/2021 Do You Or Have You Ever Used Any Other Forms Of Tobacco Or Nicotine? No [email or web address] Information not available 06/10/2021 Sex: Unknown Functional Status None recorded. Mental Status None recorded. Family History Nothing Reported. Medical History No medical history recorded. Immunizations Vaccine Type Date Status Note Provider Nam e and Address Organization Details Recorded Time SARS-COV-2 (COVID-19) vaccine, UNSPECIFIED 03/12/2021 completed Haylee harris, [facility] 02/28/2024 14:42:34 SARS-COV-2 (COVID-19) vaccine, UNSPECIFIED 04/10/2021 completed Haylee Saldivar null, [facility] 02/28/2024 14:42:34 COVID-19, mRNA, LNP-S, PF, 30 mcg/0.3 mL dose 03/18/2021 completed Haylee Saldivar null, [facility] 02/28/2024 14:42:34 COVID-19, mRNA, LNP-S, PF, 30 mcg/0.3 mL dose 04/04/2021 completed Haylee Saldivar null, [facility] 02/28/2024 14:42:34 Hep A, adult 07/15/2018 completed Haylee Saldivar [facility] 02/28/2024 14:42:34 Past Encounters Encounter ID Performer Location Encounter Start Date Encounter Closed Date Diagnosis/Indication Diagnosis SNOMED-CT Code Diagnosis ICD10 Code Diagnosis Note [id number] Celia Costa [facility] [address] [id number] 09/02/2019 14:43:02 09/02/2019 18:42:11 Corneal abrasion 28303829 S05.02XA [id number] Kylie Tompkins APRN [facility] [address] [id number] 04/20/2020 09:29:36 04/20/2020 11:01:55 Adult health examination 391455482 Z00.00 Hyperlipid emia screening 103657115 Z13.220 Influenza vaccination declined 014826668 Z28.21 [id number] Kylie Tompkins APRN [facility] [address] [id number] 10/05/2020 10:27:38 10/05/2020 11:02:56 Headache 79286902 R51.9 Benign par oxysmal positional vertigo 291435082 H81.10 [id number] Kylie Tompkins [facility] [address] [place] [address] 06/10/2021 10:05:14 06/10/2021 11:19:32 Benign essential hypertension 9627193 I10 Long-term drug therapy 579137373 Z79.899 Screening for malignant neoplasm of prostate 790457668 Z12.5 Erectile dysfunction 860 066585 F52.21 Osteoarthritis 659074440 M19.90 [id number] Palmer Olivier [facility] [address] [place] [address] 06/25/2021 08:57:52 06/25/2021 09:58:17 Edema of foot 367444403 R60.0 Instructed to elevate foot as much as possible. RTC in 10 days if not improving. [id number] EDINSON MELO RESIDENT SURGEON [place] [address] [place] [address] 07/22/2021 15:40:49 07/22/2021 18:09:06 Exposure to SARS-CoV-2 754744660 Z20.687 [id number] EDINSON MELO [facility] [address] [place] [address] 08/18/2021 11:16:50 08/18/2021 12:07:20 Acute sinusitis 41147146 J01.90 [id number] LINDA SAUNDERS NP [place] [address] [place] [address] 10/20/2021 12:24:14 10/20/2021 12:55:42 Pain of left wrist 5566613799 57025 M25.532 Will send for xrays of left wrist and hand. Patient notes that he has fallen and it has increased the pain and welling. Will send for left wrist brace at this time. Can apply ice and rest hand. Use acetaminop hen for pain relief. Arthritis 5417101 M19.90 Severe trapeziome tacarpal joint arthritis noted on xray impression s. will send for orthopedic evaluation at this time. Skin lesion 11411400 L98 .9 Skin lesion/ramu wth noted on left middle tarsal finger. Patient notes that lesion has been present for 2-3 years. Will send for referral at this time. [id number] LINDA SAUNDERS NP [place] [address] [id number] 12/02/2021 12:23:11 12/02/2021 13:57:57 Screening for malignant neoplasm of colon 028460083 Z12.11 Diarrhea 46589008 R19.7 Advised against use of imodium. increase water intake and replacemen t of electrolyt es with gatorade Viral gastroenteritis 11 6350789 A08.4 Suspect viral gastroente ritis. Advised bland diet. Avoid spicy and greasy foods at this time. increase water intake. monitor for fever and take acetaminop hen as directed. Ensure adequate rest and hydration. return to clinic as needed or with worsening symptoms. [id number] Kylie Tompkins APRN [facility] [address] [id number] 04/16/2022 15:04:51 04/16/2022 15:56:06 Adult health examination 074363114 Z00.00 Declines flu vaccine Benign ess ential hypertension 8598858 I10 Screening for malignant neoplasm of prostate 469335611 Z12.5 Hyperlipidemia 26339976 E78.5 Prediabetes 871793443 R7 3.03 Long-term drug therapy 009345932 Z79.899 Benign par oxysmal positional vertigo 437987797 H81.10 [id number] LINDA SAUNDERS NP [facility] [address] [id number] 06/01/2022 10:58:22 06/01/2022 11:28:34 Removal of suture 72238994 Z48.02 3 sutures removed from the middle finger in the left hand s/p cyst removal. [id number] Kylie Tompkins APRN [address] [place] [address] 12/09/2022 09:00:04 12/09/2022 10:03:29 Type 2 diabetes mellitus 14519458 E11.22 pt is very poorly controlled and we have discussed this in the past but he has yet to change his eating habits or monitor his glucose at home as he is supposed to. we will start mounjaro at 2.5mg and he will continue to metformin for now. after 30 days he is to contact the clinic with a log of his fasting glucose and we will discuss lowering metformin and increasing mounjaro at that time. Benign ess ential hypertension 2763173 I10 Atrial fibrillation 4943 6004 I48.91 [id number] Kylie Tompkins APRN [place] [address] [address] 01/18/2023 15:05:19 01/18/2023 15:51:50 Type 2 diabetes mellitus 42865247 E11.22 pt is very poorly controlled and we have discussed this in the past but he has yet to change his eating habits or monitor his glucose at home as he is supposed to. has been on 0.25 mounjaro and not getting improved control at this time. We can recheck his A1C in February, fasting sugar at home has been around 135 each morning, will increase dose to 5mg and he needs to stay on this for 3 months, follow up in April for labs and to discuss if his dose needs to be increased at that time. Last A1C was 10.5 in November [id number] Kylie Tompkins APRN [place] [facility] [address] [address] 04/27/2023 09:20:08 04/27/2023 10:24:54 Type 2 diabetes mellitus 73464501 E11.22 Last A1C in November was 10.5 today is 6.1, my goal is to get him off oral meds for diabetes if possible. Pain of left wrist 30352 38634 18547 M25.557 [id number] Kylie Tompkins APRN [place] [address] [address] 05/26/2023 11:26:16 05/26/2023 12:07:24 Pain of left wrist 5903052826 27777 M25.532 more than 20min was spent with pt discussing dx and plan of care for each [id number] Kylie Turner STAN[place]LA[place] [address] [address] 07/13/2023 08:57:48 07/13/2023 10:23:28 Type 2 diabetes mellitus 90047102 E11.22 Pain of left wrist 45727 66184 35572 M25.532 more than 20min was spent with pt discussing dx and plan of care for each [id number] Kylie Hodgsonford RESIDENT SURGEON [address],[place] [address] 10/05/2023 09:00:09 10/05/2023 09:59:57 Type 2 diabetes mellitus 72326918 E11.22 pt has been off this since Jul and his sugars are running higher the longer he is off of it. His ins has denied it after initially approving it. will check A1C next month at the 3mo cindi [id number] EDINSON MELO APRN [facility] [address] [id number] 02/22/2024 09:33:54 02/22/2024 10:19:18 Low back pain 330244860 M54.50 Denies imaging, tolerated injection well, take baclofen as needed, can make tired, make sure that you do not operate moving or heavy machinery while taking muscle relaxers.I f pain persists- RTC for imaging. fall W19.XXXA Slipped on deck. [id number] ISABEL WRIGHT RESIDENT SURGEON [facility] [address] [id number] 02/28/2024 14:28:50 02/28/2024 16:15:24 Low back pain 329694444 M54.50 Pt offered different medication s to help symptoms and/or pain management referralPt declined and stated would take a more conservati ve approach with otc medication sIf worsening returnpt stable and ambulatory when leaving the clinic [id number] MD [facility] [address] [place] [address] [place] [address] 03/21/2024 13:47:11 03/21/2024 14:16:32 Sleep apnea 63711618 G47.30 Dyspnea on exertion 6084 5006 R06.09 Inadequate sleep hygiene 884060728 Z72.821 Obstructiv e sleep apnea syndrome 50508967 G47.33 [id number] MD [facility] [address] [address] 07/26/2024 10:11:37 07/26/2024 10:47:40 Obstructive sleep apnea syndrome 19222271 G47.33 Dyspnea on exertion 6084 5006 R06.09 Inadequate sleep hygiene 044497198 Z72.821 Health Concerns Section Related Observation LastModified by Organization Detai ls LastModified Time None Recorded Concern Status LastModified by Organization Details LastModified Time None Recorded Advance Directives Directive None Recorded Payers Encounter Date Sequence Insurance Name Policy Number Policy Pinedo Covered Member ID Pinedo Member ID Guarantor Name 10/05/2023 1 [employer] [id number] Maria Djeffrey Welsh Morena [id number] Gwyn Berg 02/22/2024 1 [employer] [id number] Maria Djeffrey Welsh Morena [id number] Gwyn Berg 02/28/2024 1 [employer] [id number] Mani Blaise Morena [id number] Gwyn Berg 03/21/2024 1 [employer] [id number] Maria Djeffrey Welsh Morena [id number] Gwyn Berg 07/26/2024 1 [employer] [id number] Mani Blaise Morena [id number] Gwyn Berg Notes Date Note Type Note Provider Name and Address Organization Details Recorded Time 10/05/2023 text/html Diabetes F/UReported bypatient.Review finger sticks:fastin Context:seeing eye doctor regularly; checking feet regularly;home blood sugar range high Associated Symptoms:weight gain (7 lbs);increased thirst;increased urination;blurred vision;numbness of feet; fatigue Kylie Tompkins, RESIDENT SURGEON [address] [place], [address], [facility] 10/06/2023 14:44:59 02/22/2024 text/html Back PainReporte d bypatient.Location: pain radiates up back Quality:sharp Severity:worsening; pain level 9/10;severe (8-10);interference with sleep Onset/Timindays ago Context:fall Aggravating Factors:movement/po sitioning; twisting; flexing back; extending back; worse at night Associated Symptoms:no fever; no weak limbs; no numbness of the legs/feet; no tingling; no incontinence; no shortness of breath; no unintentional weight loss; no chills; no night sweats; no gait instability; no bowel/bladder symptoms; no recent increase in stress Previous Injury:no prior injury to back; no prior malignancy Prior Imaging:none 67 year old male presents for low back pain. Patient states he slipped on some steps on his back deck. Denies imaging, no further complaints. EDINSON PRECIADOY, RESIDENT SURGEON [address] [place], [id number], [facility] 02/27/2024 14:14:00 02/28/2024 text/html 68 yo male prese nts for continued back pain, pt states that the steroid shot last week did not help just made him feel weird. ISABEL WRIGHT, RESIDENT SURGEON [address] [place], [id number], [facility] 02/28/2024 19:56:29 03/21/2024 text/html Patient here to establish care, states he is willing to do sleep study, denies any recent abx or steroids, has afib, echo this afternoon Sleep HistoryBedtime: {{BEDTIME 10-10:30p m#}}. Sleep latency: {{MIN 30#}} minutes. Rise time: {{RISETIME 2-3am#}} . Awakenings: {{# of Awakenings 2-3#}}/n ight. Reasons:{{Reasons Awake unknown#}}. Restorative sleep: {{Refreshing or Not not#}}. Naps: {{# per day sometimes 1#}}.Sleeping outside bedroom: {{yes no sometimes# }}. Use of TV/electronic devices in bed for prolonged periods: {{yes no*}}. Prolonged periods awake in bed: {{yes* no}}.Snoring :{{yes* no}}. Snorting/gasping/wi tnessed apneas: {{yes* no}}. Teeth grinding: {{yes no*}}[place] Sleepiness Scale: {{number 8#}}. Falls asleep if otherwise not engaged: {{yes no sometimes# }}. Falls asleep while reading, watching TV or movies: {{yes* no}}. Julianne Tineo MD [address] [place] [address], [phone], [facility] 03/21/2024 14:12:20 07/26/2024 text/html patient presents to clinic today stating he is doing good, he reports that he is using his cpap nighlty and benefiting. no c/o coughing, wheezing or shortness of breath. no recent abx or steroids.{{CPAP* Bi PAP}} Device Data {{From DATE 06/26/2024#}} to {{To DATE 07/25/2024#}} Settings: {{NUMBER 5-8#}} cm H2O EPR (Flex): {{NUMBER 2#}} Days used: {{NUMBER 97#}} % Daily use: {{NUMBER 5#}} hours {{NUMBER 43#}} min Days used > 4 hours: {{NUMBER 97#}} % AHI: {{NUMBER 2.3#}} Large leak: {{NUMBER 6.5#}} min Pressure 90%: {{NUMBER 7.9#}} cm H2O Julianne Tineo MD [address] [place], [id number], [facility] 07/26/2024 10:50:12
[2024-11-14 12:58] LABS: Basophils Absolute Auto 0.1 K/mm3 (0.0-0.1); Eosinophils Absolute Auto 0.1 K/mm3 (0-0.3); Eosinophils Percent Auto 1.8 % (0-4.4); Hematocrit 47.4 % (42.0-52.0); Hemoglobin 15.1 g/dL (14.0-18.0); Immature Granulocyte Absolute 0.04 K/mm3 (0.00-0.031); Immature Granulocyte Percent A 0.5 % (0-0.5); Lymphocytes Percent Auto 20.1 % (18.3-44.2); Mean Corpuscular HGB Conc 31.9 g/dl (32-36); Mean Corpuscular Hemoglobin 29.8 pg (26-34); Mean Corpuscular Volume 93.5 fl (80-100); Mean Platelet Volume 10.9 fl (7.4-10.4); Monocytes Absolute Auto 0.6 K/mm3 (0.1-0.6); Monocytes Percent Auto 7.5 % (2.6-8.5); Neutrophils Absolute Auto 5.5 K/mm3 (1.3-6.7); Neutrophils Percent Auto 69.1 % (45.5-73.1); Platelet Count Result 186 k/mm3 (150-375); Red Blood Count 5.07 M/mm3 (4.6-6.20); Red Cell Distribution Width 13.3 % (11.5-14.5)
[2024-11-14 13:23] LABS: Vitamin D 25 Hydroxy 54.9 ng/mL
[2024-11-14 13:34] LABS: Creatinine Urine 133.9 mg/dL
[2024-11-14 13:38] LABS: MALB Creatinine Ratio 7.4 mg/g (0-30); Microalbumin Urine Random 9.9 mg/L (0-16.7)
[2024-11-14 13:41] LABS: Alanine Aminotransferase 36 U/L (6-50); Albumin Level 4.6 g/dL (3.5-5.1); Alkaline Phosphatase 85 U/L (38-126); Anion Gap 10 mmol/L (4-12); Aspartate Amino Transferase 34 U/L (17-59); Bilirubin,Total 1.5 mg/dL (0.2-1.3); Blood Urea Nitrogen 21 mg/dL (9-20); Calcium 9.7 mg/dL (8.4-10.2); Carbon Dioxide 26 mmol/L (22-30); Chloride 104 mmol/L (98-107); Cholesterol 113 mg/dL (0-200); Estimated Glomerular Filt Rate > 60; Glucose 110 mg/dL (65-110); HDL Direct 43 mg/dL; Magnesium 2.3 mg/dL (1.6-2.3); Potassium 4.4 mmol/L (3.4-5.0); Sodium 140 mmol/L (137-145); Triglycerides 93 mg/dL (<150)
[2024-11-14 13:45] LABS: Hemoglobin A1C 6.4 % (<5.7)
[2024-11-14 13:55] LABS: LDL Cholesterol Direct 44 mg/dL
== END 2024-11-14 11:13 | disposition home or self-care (01) ==
PROVIDERS: PCP Family Medicine; Visit Provider Family Medicine
DX: E11.9 Type 2 diabetes mellitus without complications (principal); E66.9 Obesity, unspecified; R06.83 Snoring; R53.83 Other fatigue; Z00.00 Encounter for general adult medical examination without abnormal findings
CPT/HCPCS: 36415; 80053; 80061; 82043; 82306; 82607; 83036; 83735; 85025